=== PATIENT | female | born 1970 ===

== ENCOUNTER 2021-02-16 14:19 | Emergency (ER) | payer OTHER ==
[~2021-02-16] VITALS: Ht 175.3 cm; Wt 88.5 kg
[~2021-02-16 14:19] MED LIST: CODE1TAB37 PO; DOLOGEN CAPLET1 EACH PO; GABAPENTIN400 MG PO; MEDROL4 MG PO; Mylicon 125MG PO; ZITHROMAX500 MG PO
[2021-02-16] MEDS ORDERED: DAFLONEX-XL 11300 MG PO (14:43)
[2021-02-16] MEDS ORDERED: NAPR500T14 (14:43)
[2021-02-16] MEDS ORDERED: HYDROCHLOROTHIA25 MG (14:44)
[2021-02-16] MEDS ORDERED: PROTONIX40 MG (14:45)
[2021-02-16] MEDS ORDERED: IBU600 MG PO (14:45)
== END 2021-02-16 20:49 | disposition home or self-care (01) ==
LOC: ER 14:19
DX: R10.31 Right lower quadrant pain (principal); R10.2 Pelvic and perineal pain
CPT/HCPCS: 74177; Q9965

== ENCOUNTER 2021-12-02 23:05 | Emergency (ER) | payer OTHER ==
[~2021-12-02] VITALS: Ht 175.3 cm; Wt 89.8 kg
[~2021-12-02 23:05] MED LIST changes: +DAFLONEX-XL 11300 MG PO; +HYDROCHLOROTHIA25 MG; +IBU600 MG PO; +NAPR500T14; +PROTONIX40 MG
[2021-12-02] MEDS ORDERED: DAFLONEX-XL 11300 MG (23:42)
[2021-12-02] MEDS ORDERED: PREVACID15 M1 (23:43)
[2021-12-03] MEDS ORDERED: ZYNCOF 20-400120 ML PO (06:21)
[2021-12-03] MEDS ORDERED: ALBUTEROL2.5 MG/3 M IH (06:21)
== END 2021-12-03 06:25 | disposition home or self-care (01) ==
LOC: ER 23:05
DX: R06.02 Shortness of breath (principal); Z88.6 Allergy status to analgesic agent; Z88.1 Allergy status to other antibiotic agents